=== PATIENT | female | born 1955 | race Caucasian/White ===

== ENCOUNTER 2024-04-30 01:14 | Outpatient (CLI) | payer OTHER, MEDICAID, SELFPAY ==
--- NOTE | 2024-04-30 07:30 | DI.US_ITS ---
Exam(s) US NEEDLE LOCAL OTHER WO RAD EXAM: Right thyroid nodule, TR four 2.1 cm,ultrasound guided bx,e04.2 COMPARISON: No exams were available for comparison TECHNIQUE: Ultrasound performed using standard protocol. FINDINGS: Sonography was provided for Dr. Erazo during the performance of a thyroid nodule biopsy. Please re lenore to the procedure report for complete details. DATA REPOSITORY:
--- NOTE | 2024-04-30 11:35 | PAPNONF_PTH ---
PATIENT: Sonya Patel LOC: [facility] U#:[id number] AGE/SX: 69/F ROOM: RE04/30/[address]: Daniel Erazo MD : [id number] BED: DIS: 04/30/2024 SPEC #: [id number] RECD: 04/30/24 12:55 STATUS: CHARITOHank REQ #: [id number] UMM: 04/30/24 11:[address]: Daniel Erazo DEPT: [facility] Cytology RECD BY: Juliette Tony ENTERED: 04/30/24 12:56 SP TYPE: MADHAVI SCOTT DR: Bee Leahy Tissues: 1 - BODY FLUID CYTO-FINE NEEDLE ASPIRATE-[facility] Procedures: BODY FLUID CYTO-FINE NEEDLE ASPIRATE-[facility] Comments: [id number] (PATH FNA CONSULT) (REFRIGERATED)
--- NOTE | 2024-04-30 11:46 | W.PROCNOTE ---
Date of service: 04/30/24 Time of Service: 11:46 Procedure Note Date of procedure: 04/30/24 Procedure: Ultrasound-guided FNA, right thyroid nodule, pathology present Surgeon/Proceduralist/Physician: Daniel Erazo Procedure Indications: The patient has a right sided thyroid nodule meeting criteria for biopsy. Options were explained to the family regarding further management. They elected undergo the above procedure. Verbal consent was obtained. The below was then performed. Risks including bleeding, infection, and need for further treatment were discussed at length prior to the procedure Procedure Description: The patient was positioned in supine position with her neck slightly extended. Ultrasound was used to localize the right sided thyroid nodule, after the patient was prepped and draped. 1% lidocaine with 1/100,000 epinephrine was injected in the skin and subcutaneous tissues overlying the nodule. A 25-gauge needle was then passed into the needle under ultrasound guidance, and after passing it into the nodule repeatedly, handed to pathology who verified adequate cellularity. 2 additional passes were made for potential Afirma testing. After ensuring adequate hemostasis, the patient was allowed to sit, stand, and then ambulate after a sterile dressing was applied to the site. Her vital signs remained stable. She will keep the site dry for the 24 hours. She will remove the bandage in a couple of hours. She will call with any signs of infection. She may use ibuprofen or Tylenol for any discomfort. She will call if she does not hear from me within 1 week. She will call with any concerns. They had no further questions. They are comfortable with this plan.
== END 2024-04-30 01:34 ==
LOC: DI 01:15
PROVIDERS: PCP Family Medicine; Visit Provider Otolaryngology
DX: E04.2 Nontoxic multinodular goiter (principal)
CPT/HCPCS: 10005; 76942; 88104

== ENCOUNTER → 2025-04-17 05:47 | Outpatient (CLI) | payer MEDICAID, SELFPAY ==
--- NOTE | 2025-04-17 13:15 | DI.US_ITS ---
Exam(s) US THYROID EXAM: US THYROID CLINICAL HISTORY: Assess for change, biopsy benign, MULTINODULAR THYROID, E04.2 NONTOXIC. TECHNIQUE: Ultrasound thyroid performed using standard protocol. COMPARISON: US US Thyroid, Soft Tissue Hd+Nck from 09/08/2023 US US NEEDLE LOCAL OTHER WO RAD from 04/30/2024 FINDINGS: ISTHMUS: 3 mm RIGHT LOBE: Size: 5.0 x 1.5 x 1.7 cm Echogenicity: Normal. Vascularity: Normal. Nodules: multiple. Largest nodule measures 1.8 x 1.0 x 1.4 cm, solid, isoechoic, wider than tall, smoothly marginated with punctate echogenic foci, TR 4, FNA recommended. LEFT LOBE: Size: 5.0 x 1.4 x 1.6 cm Echogenicity: Normal. Vascularity: Normal. Nodules: 0.8 centimeter solid hypoechoic nodule without echogenic foci, TR 4. No follow-up recommended due to size. OTHER FINDINGS: None. IMPRESSION: Apparent decrease in size of largest nodule the left lobe versus measurement differences. TR 4. FNA recommended. DATA REPOSITORY:
== END ==
PROVIDERS: PCP Family Medicine; Visit Provider Otolaryngology
DX: E04.2 Nontoxic multinodular goiter (principal)
CPT/HCPCS: 76536